=== PATIENT | male | born 1970 | race Caucasian/White ===

== ENCOUNTER 2019-09-06 16:27 | Emergency (ER) | payer OTHER, SELFPAY ==
[2019-09-06 16:35] VITALS: BP 158/69; PULSE 68; RESP 16; TEMP 37.4; O2SAT 98
--- NOTE | 2019-09-06 16:49 | ED.EAR ---
HPI - Ear Problem General Chief complaint: Ear Stated complaint: ear pain Source: patient Mode of arrival: ambulatory Limitations: no limitations History of Present Illness HPI Narrative: The patient, multiple oral meds, presents with ear discomfort. Patient states he has a swimming pool and noted some right ear discomfort associated with edema and discharge. No fever, facial changes, vertigo , dizzziness, URI-sinusitis; symptoms are mild, worse with palpation, unimproved with unknown previous topical ear antibiotic drops. Patient advised to follow-up with ENT, use provided ear jagjit, return if worsens per handout; He has a prior history of hypertension, dyslipidemia, AODM on oral medications Related Data Home Medications Medication Instructions Recorded Confirmed amlodipine 5 mg tablet 5 mg PO DAILY 03/25/19 09/06/19 aspirin 81 mg tablet,delayed 81 mg PO DAILY 03/25/19 09/06/19 release sildenafil 100 mg tablet 100 mg PO DAILY PRN 03/25/19 09/06/19 omega-3 fatty acids 1,000 mg 2,000 mg PO DAILY cap 03/26/19 09/06/19 capsule Allergies Allergy/AdvReac Type Severity Reaction Status Date / Time Sulfa (Sulfonamide Allergy Intermediate Other Verified 07/30/19 16:33 Antibiotics) Review of Systems Review of Systems: Narrative: General/Constitutional: No weight loss,fever Eyes: N0: Redness,discharge Ears/Nose/Throat: No: Epistaxis,ear discharge Respiratory: Denies: Hemoptysis Gastrointestinal: No Vomiting, Bleeding-rectal Skin: No Lumps, eruption Neurologic: No Focal Weakness,Sz Hematologic: Denies: Petechiae/Purpura Psychiatric: No: Suicida ideationl All Other Systems: Reviewed and Negative PMFSH Social History Social History Smoking status: Never smoker Alcohol intake: never Gender identity (if verbalized by the patient): Male Comments At time of signature, agree with nursing past medical, surgical, social and family history. There is no relevant family history pertinent to the presenting complaint Exam Narrative: Exam Narrative: General Appearance: Well appearing, Well nourished, No distress EYE: PERRLA , EOMI , Ears: Right EAC with mucopus and swelling, TMC not seen; Left external ear normal, Auditory canal normal Nose: Normal nose, Nares clear Mouth/Throat: Normal appearing, Normal lips Neck: Supple, No adenopathy Respiratory: Airway patent, No respiratory distress Skin: Warm, Dry Neurological: A&O x3, CN II-X intact Psychiatric: Normal mood, Normal affect Course Vital Signs Vital signs: Vital Signs Temperature 99.4 F 09/06/19 16:35 Pulse Rate 68 09/06/19 16:35 Respiratory Rate 16 09/06/19 16:35 Blood Pressure 158/69 H 09/06/19 16:35 Pulse Oximetry 98 09/06/19 16:35 Temperature 99.4 F 09/06/19 16:35 Pulse Rate 68 09/06/19 16:35 Respiratory Rate 16 09/06/19 16:35 Blood Pressure 158/69 H 09/06/19 16:35 Pulse Oximetry 98 09/06/19 16:35 Medical Decision Making Vital Signs Vital Signs: Vital Signs Temperature 99.4 F 09/06/19 16:35 Pulse Rate 68 09/06/19 16:35 Respiratory Rate 16 09/06/19 16:35 Blood Pressure 158/69 H 09/06/19 16:35 Pulse Oximetry 98 09/06/19 16:35 Temperature 99.4 F 09/06/19 16:35 Pulse Rate 68 09/06/19 16:35 Respiratory Rate 16 09/06/19 16:35 Blood Pressure 158/69 H 09/06/19 16:35 Pulse Oximetry 98 09/06/19 16:35 Discharge Plan Discharge Clinical Impression: Acute otitis externa of right ear Patient Disposition: Home, Self-Care Condition: Stable Instructions: Antibiotic Form, Otitis Externa (ED) Additional Instructions: See ENT in follow-up example Dr. Ulisses Hurt Prescriptions: New ciprofloxacin HCl 750 mg tablet 750 mg PO Q12H Qty: 10 RF: 0 Ciprodex 0.3-0.1 % drops,suspension 4 drp EACH EAR Q12H 7 Days Qty: 1 RF: 0 tramadol 50 mg tablet 50 mg PO Q6H PRN (Reason: pain) Qty:
== END 2019-09-06 16:59 | disposition home or self-care (01) ==
PROVIDERS: Emergency Provider Emergency Medicine; PCP Family Medicine
DX: H60.501 Unspecified acute noninfective otitis externa, right ear (principal); Z79.82 Long term (current) use of aspirin; E78.00 Pure hypercholesterolemia, unspecified; I10 Essential (primary) hypertension; E11.9 Type 2 diabetes mellitus without complications
CPT/HCPCS: 99213; G0463

== ENCOUNTER 2021-05-26 11:10 | Emergency (ER) | payer OTHER, SELFPAY ==
--- NOTE | ~2021-05-26 | XR_ITS ---
EXAMINATION: XR wrist LT min 3V DATE: 05/26/2021 11:33 INDICATION: Left wrist pain and swelling post fall TECHNIQUE: Posteroanterior, ulnar deviation, oblique, and lateral views of the left wrist were obtain ed. COMPARISON: none FINDINGS: Distal left radial metaphyseal fracture with which is dorsally impacted with buckling along the dorsa l sided cortex and mild posterior angulation resulting in 7 degrees dorsal tilt of the distal articul ar surface. No definitive extension of the fracture to involve the articular cortex. No other acute f ractures identified. Small round corticated ossicle near the tip of the ulnar styloid process likely sequela of old trauma either heterotopic ossicles related to soft tissue injury or a tiny chronic non united avulsion fracture fragment. Joint spaces appear relatively preserved at the left wrist and vis ualized hand. IMPRESSION: 1. Dorsal impaction resulting in mild dorsal angulation of a nondisplaced likely extra articular dist al left radial metaphyseal fracture. Reviewed, dictated and finalized at location A. IMPRESSION: 1. Dorsal impaction resulting in mild dorsal angulation of a nondisplaced likel y extra articular distal left radial metaphyseal fracture.
[2021-05-26 11:22] VITALS: BP 145/80; PULSE 93; RESP 18; TEMP 36.1; O2SAT 99
--- NOTE | 2021-05-26 11:39 | ED.UPPEXIN ---
HPI - Extremity Injury (Upper) General Chief Complaint: Extremity Injury, Upper Stated Complaint: lt wrist injury Time Seen by Provider: 05/26/21 11:25 Source: patient Mode of arrival: ambulatory Limitations: no limitations History of Present Illness HPI narrative: Mr. Valverde is a 50-year-old male patient presenting to the clinic today with complaints of left wrist pain after falling in the garage this morning around 7:30 AM. He has an obvious deformity to the left radial wrist. Is very limited motion wrist. States he tripped over a golf bag and out reach his arm to catch his fall. He denies hitting his head or any loss of consciousness. Related Data Home Medications Medication Instructions Recorded Confirmed lisinopril 10 mg tablet 10 mg PO DAILY 03/08/20 05/26/21 spironolactone 50 mg tablet 100 mg PO DAILY tablet 03/08/20 05/26/21 empagliflozin [Jardiance] 25 mg PO DAILY 05/26/21 05/26/21 Allergies Allergy/AdvReac Type Severity Reaction Status Date / Time Sulfa (Sulfonamide Allergy Intermediate Other Verified 05/26/21 11:30 Antibiotics) Review of Systems Review of Systems: Pertinent positives per HPI. Patient denies any fever, chills, rash, headache, visual changes, dizziness, cough, runny nose, sore throat, shortness of breath, chest pain, palpitations, nausea, vomiting, diarrhea, constipation, abdominal pain, or any urinary issues. 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 Dyslipidemia Essential hypertension Metabolic syndrome Mixed hyperlipidemia Other abnormal glucose Other specified diabetes mellitus with diabetic neuropathy, unspecified Snoring Type 2 diabetes mellitus Family History Family History Mother Hypertension, Onset Age: 77 Father Hypertension, Onset Age: 78 Carcinoma of colon Family history of congestive heart failure, Onset Age: 78 Social History Social History Alcohol intake: never Gender identity (if verbalized by the patient): Male Comments At the time of my signature, I reviewed and agree with the nursing past medical, surgical, social, and family history. There is no relevant family history pertinent to the patient complaint. Exam Narrative: General: Well-developed, well nourished, in no apparent distress Head: Normocephalic, atraumatic Cardio: Regular rate and rhythm, s1 and s2 normal, no murmur appreciated. Resp: Clear to auscultation bilaterally, no rhonchi, rales, wheezing or rubs. Musculoskeletal: Obvious left distal radial head deformity with swelling, tender to palpation over the dorsal distal radius, limited flexion and extension of the wrist due to pain, limited ulnar and radial deviation due to pain , is able to move fingers with mild pain to the wrist, peripheral pulse strong, normal gait and station Course Course Emergency Course: Portions of this record may have been created with voice recognition software. Level of Care: Express Care Visit Vital Signs Vital signs: Vital Signs Temperature 36.1 C L 05/26/21 11:22 Pulse Rate 93 05/26/21 11:22 Respiratory Rate 18 05/26/21 11:22 Blood Pressure 145/80 H 05/26/21 11:22 Pulse Oximetry 99 05/26/21 11:22 Temperature 36.1 C L 05/26/21 11:22 Pulse Rate 93 05/26/21 11:22 Respiratory Rate 18 05/26/21 11:22 Blood Pressure 145/80 H 05/26/21 11:22 Pulse Oximetry 99 05/26/21 11:22 Vital signs reviewed MDM - Extremity Injury (Upper) MDM Narrative Medical decision making narrative: Upon assessment patient is resting comfortably on the exam table. He has an obvious deformity to the left radial dorsal wrist. X-ray was completed and he has a distal impacted left radial fracture. Radiologist confirms that this is n
== END 2021-05-26 12:21 | disposition home or self-care (01) ==
PROVIDERS: Emergency Provider Nurse Practitioner Family; PCP Physician Assistant
DX: S52.502A Unspecified fracture of the lower end of left radius, initial encounter for closed fracture (principal); W19.XXXA Unspecified fall, initial encounter; E78.5 Hyperlipidemia, unspecified; I10 Essential (primary) hypertension; E78.2 Mixed hyperlipidemia; E11.9 Type 2 diabetes mellitus without complications
CPT/HCPCS: 29125; 73110; 99214; A4565; G0463

== ENCOUNTER 2022-03-17 09:32 | Emergency (ER) | payer OTHER, SELFPAY ==
--- NOTE | 2022-03-17 09:39 | ED.EYEPROB ---
HPI - Eye Problem General Chief complaint: Eye Problems Stated complaint: Lt Eye Irritation Time Seen by Provider: 03/17/22 09:45 Source: patient Mode of arrival: ambulatory Limitations: no limitations History of Present Illness HPI Narrative: Mr. Valverde is a 51-year-old male patient presenting to the clinic today with complaints of left eye discomfort x1 day. He reports no known injury. He does wear contacts and has taken his contact out. States that he has clear sticky drainage coming from the eye. Does have some discomfort and light sensitivity as well Related Data Home Medications Medication Instructions Recorded Confirmed spironolactone 50 mg tablet 100 mg PO DAILY 03/08/20 03/17/22 lisinopril 10 mg tablet 40 mg PO DAILY 07/19/21 03/17/22 aspirin 81 mg tablet 81 mg PO DAILY 09/14/21 03/17/22 Allergies Allergy/AdvReac Type Severity Reaction Status Date / Time Sulfa (Sulfonamide Allergy Intermediate Other Verified 03/17/22 09:49 Antibiotics) Review of Systems Review of Systems: Pertinent positives per HPI. Patient denies any fever, chills, rash, headache, dizziness, cough, runny nose, sore throat, shortness of breath, chest pain, palpitations, nausea, vomiting, diarrhea, constipation, abdominal pain, or any urinary issues. 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 Dyslipidemia Essential hypertension Metabolic syndrome Mixed hyperlipidemia Other abnormal glucose Other specified diabetes mellitus with diabetic neuropathy, unspecified Overweight Snoring Type 2 diabetes mellitus Family History Family History Mother Hypertension, Onset Age: 77 Father Hypertension, Onset Age: 78 Carcinoma of colon Family history of congestive heart failure, Onset Age: 78 Other Depression Social History Social History Smoking status: Never smoker Alcohol intake: never Substance use: never Living arrangements: with family Gender identity (if verbalized by the patient): Male Comments At the time of my signature, I reviewed and agree with the nursing past medical, surgical, social, and family history. There is no relevant family history pertinent to the patient complaint. Exam Narrative: General: Well-developed, well nourished, in no apparent distress Head: Normocephalic, atraumatic Eyes: Pupils equally round and reactive to light bilaterally, EOM intact, right sclera and conjunctive clear, left sclera and conjunctiva injected with watery discharge, lids normal Ears: TMs intact and clear, ear canals clear, no drainage, grossly hearing normal. Nose: Nares patent, no discharge, no inflammation, no sinus tenderness. Mouth: Oropharynx without lesions or masses, good dentition, MMM. Neck: Supple, trachea midline, no enlargement of anterior or posterior cervical nodes, no thyroid masses or goiter palpable. Cardio: Regular rate and rhythm, s1 and s2 normal, no murmur appreciated. Resp: Clear to auscultation bilaterally anteriorly and posteriorly, no rhonchi, rales, wheezing or rubs Course Course Emergency Course: Portions of this record may have been created with voice recognition software. Level of Care: Express Care Visit Vital Signs Vital signs: Vital Signs Temperature 36.6 C 03/17/22 09:42 Pulse Rate 106 H 03/17/22 09:42 Respiratory Rate 18 03/17/22 09:42 Blood Pressure 136/68 03/17/22 09:42 Pulse Oximetry 97 03/17/22 09:42 Oxygen Delivery Room Air 03/17/22 09:42 Temperature 36.6 C 03/17/22 09:42 Pulse Rate 106 H 03/17/22 09:42 Respiratory Rate 18 03/17/22 09:42 Blood Pressure 136/68 03/17/22 09:42 Pulse Oximetry 97 03/17/22 09:42 Ox
[2022-03-17 09:42] VITALS: BP 136/68; PULSE 106; RESP 18; TEMP 36.6; O2SAT 97
== END 2022-03-17 10:14 | disposition home or self-care (01) ==
PROVIDERS: Emergency Provider Nurse Practitioner Family; PCP Physician Assistant
DX: H10.9 Unspecified conjunctivitis (principal); E78.5 Hyperlipidemia, unspecified; I10 Essential (primary) hypertension; E78.2 Mixed hyperlipidemia; E11.40 Type 2 diabetes mellitus with diabetic neuropathy, unspecified; Z79.82 Long term (current) use of aspirin
CPT/HCPCS: 99213; A9270; G0463

== ENCOUNTER 2024-06-30 13:01 | Outpatient (CLI) | payer OTHER, SELFPAY ==
--- OUTSIDE RECORDS SUMMARY | 2024-06-30 13:14 | XMS_ITS | Clinical Summary ---
Author Organization [facility] Address [address] [place] [address] Care Team Providers Care Utilization Manager Name Role Phone Oswaldo Naranjo MD Primary Care Provider [phone] Allergies No known active allergies Medications gemfibroziL (LOPID) 600 mg tablet Take 1 tablet (600 mg total) by mouth 2 (two) times a day Active omega-3 fatty acids-fish oil 300-1,000 mg capsule Take by mouth Active Vascepa 1 gram capsule TAKE 2 CAPSULE BY MOUTH TWICE DAILY 03/04/2020 Active metFORMIN XR (GLUCOPHAGE XR) 500 mg 24 hr tablet Take 1 tablet (500 mg total) by mouth 2 (two) times a day 03/03/2020 Active sildenafiL (VIAGRA) 100 mg tablet 11/14/2020 Active amLODIPine (NORVASC) 5 mg tablet Take 2 tablets (10 mg total) by mouth daily 30 tablet 3 03/14/2021 Active spironolactone (ALDACTONE) 50 mg tabletIndication s:Hypertension, unspecified type Take 1 tablet (50 mg total) by mouth 2 (two) times a day 180 tablet 1 09/11/2022 Active Ozempic 1 mg/dose (4 mg/3 mL) pen injector injection INJECT 1 MG UNDER THE SKIN EVERY WEEK 11/12/2022 Active cholecalciferol (VITAMIN D-3) 50,000 unit capsule TAKE 1 CAPSULE BY MOUTH WEEKLY 10/30/2022 Active lisinopriL (PRINIVIL,ZESTRI L) 40 mg tabletIndication s:Hypertension, unspecified type Take 1 tablet (40 mg total) by mouth daily 90 tablet 3 03/07/2023 Active Active Problems Problem Noted Date Diagnosed Date Hyperlipidemia 04/22/2012 Abnormal glucose level 04/22/2012 Hypertension 04/22/2012 Corneal scar 06/04/2011 Myopia 06/04/2011 Social History Tobacco Use Types Packs/Day Years Used Date Smoking Tobacco: Never Tobacco Cessation:Counseling Given: Not Answered Personal Safety Answer Date Recorded Getting School Help Needed Not on file 02/08 Sex and Gender Information Value Date Recorded Sex Assigned at Not on file 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 Gender Identity Not on file Sexual Orientation Not on file Obstetrics History Last Filed Vital Signs Vital Sign Reading Time Taken Comments Blood Pressure 138/88 12/04/2022 10:00 AM CDT Pulse 106 12/04/2022 10:00 AM CDT Temperature 36.9 C (98.5 F) 12/04/2022 10:00 AM CDT Respiratory Rate - - Oxygen Saturation - - Inhaled Oxygen Concentration - - Weight 92.1 kg (203 lb) 12/04/2022 10:00 AM CDT Height 182.9 cm (6') 12/04/2022 10:00 AM CDT Body Mass Index 27.53 12/04/2022 10:00 AM CDT Plan of Treatment Health Maintenance Due Date Last Done Comments Colon Cancer Screening-Colonoscopy 1970 Depression Screening 1970 Hepatitis C Screening 1970 Prostate Cancer Screening-PSA 1970 DTaP/Tdap/Td Vaccine (1 - Tdap) 1981 Hepatitis B Screening 1988 Regular Well Visit/Exam 18-64 1988 Zoster Vaccine (1 of 2) 2020 Influenza Vaccine (#1) 2023 Pneumococcal vaccine <65 Aged Out No longer eligible based on patient's age to complete this topic Insurance [facility] Care Teams Utilization Manager Relationship Specialty Start Date End Date Oswaldo Naranjo MD [address] [place] [address] PCP - General Family Medicine 12/15/19
--- OUTSIDE RECORDS SUMMARY | 2024-06-30 13:14 | XMS_ITS | Encounter Summary ---
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 Gender Identity Not on file Sexual Orientation Not on file documented as of this encounter Plan of Treatment Not on file documented as of this encounter Procedures Procedure Name Priority Date/Time Associated Diagnosis Comments SCAN - LABS 12/30/2021 documented in this encounter Results * SCAN - LABS (12/30/2021) us Provider Scanning Edited Result - Final documented in this encounter Visit Diagnoses Not on filedocumented in this encounter Care Teams Banking Center Manager Relationship Specialty Start Date End Date Oswaldo Naranjo MD [address] [place] [address] PCP - General Family Medicine 12/15/19 documented as of this encounter
--- OUTSIDE RECORDS SUMMARY | 2024-06-30 13:14 | XMS_ITS | Encounter Summary ---
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 Gender Identity Not on file Sexual Orientation Not on file documented as of this encounter Plan of Treatment Not on file documented as of this encounter Procedures Procedure Name Priority Date/Time Associated Diagnosis Comments SCAN - RADIOLOGY/IMAGING 04/15/2017 documented in this encounter Results * SCAN - RADIOLOGY/IMAGING (04/15/2017) Anatomical Region Laterality Modality Other us Provider Scanning Final Result documented in this encounter Visit Diagnoses Not on filedocumented in this encounter Care Teams Packer Fuser Relationship Specialty Start Date End Date Oswaldo Naranjo MD [address] [place] [address] PCP - General Family Medicine 12/15/19 documented as of this encounter
--- OUTSIDE RECORDS SUMMARY | 2024-06-30 13:14 | XMS_ITS | Clinical Summary ---
Author Organization [facility] Address [address] [place] [address] Care Team Providers Care Sod Cutter Name Role Phone Unavailable Primary Care Provider Unavailabl e Source Comments [facility],non-owned Affiliates and Associated Physician Practices is amultiple site organization consisting of ambulatory clinics and hospital sitesin [place], [place], [place] and [place]. This disclosure is being madepursuant to the Care Everywhere program and may not contain all information available regarding this patient. Last updated 17.[facility] Medications * Be aware that medications may not be up to date on this document. Alwaysverify current medications with the patient. GEMFIBROZIL PO Activ e Empagliflozin (JARDIANCE PO) Activ e AMLODIPINE BESYLATE PO Active HYDRALAZINE HCL PO Active MINOXIDIL PO Active Brightwood-3 Fatty Acids (FISH OIL PO) Active SPIRONOLACTONE PO Active METFORMIN HCL PO Act kaela Nebivolol HCl (BYSTOLIC PO) Active ofloxacin (OCUFLOX) 0.3 % ophthalmic solution 1-2 drops in left eye Q 2-4 hours while awake X 2 days, then 1-2 drops four times/day X 5 days 1 bottles 10/05/2018 Active Social History Tobacco Use Types Packs/Day Years Used Date Smoking Tobacco: Never Smokeless Tobacco: Never Sex and Gender Information Value Date Recorded Sex Assigned at Not on file Legal Sex Male 1:07 PM CDT Gender Identity Not on file Sexual Orientation Not on file Last Filed Vital Signs Vital Sign Reading Time Taken Comments Blood Pressure 160/100 10/05/2018 12:30 PM CDT Pulse 69 10/05/2018 12:30 PM CDT Temperature 36.8 C (98.2 F) 10/05/2018 12:30 PM CDT Respiratory Rate 16 10/05/2018 12:30 PM CDT Oxygen Saturation 98% 10/05/2018 12:30 PM CDT Inhaled Oxygen Concentration - - Weight 98.4 kg (217 lb) 10/05/2018 12:30 PM CDT Height 182.9 cm (6') 10/05/2018 12:30 PM CDT Body Mass Index 29.43 10/05/2018 12:30 PM CDT Plan of Treatment Health Maintenance Due Date Last Done Comments COLOGUARD (AGES 45-75) - COL ON CA SCREENING 1970 COLON MONITORING 1970 COLONOSCOPY - COLON CA SCREENING 1970 CT COLONOGRAPHY - COLON CA SCREENING 1970 Colorectal Cancer Screening 1970 FIT - COLON CA SCREENING 1970 FLEX SIG - COLON CA SCREENING 1970 LIPID TESTING 1970 HIV SCREENING 1985 HEPATITIS C SCREENING 12/18/1988 DTAP/TDAP/TD VACCINES (1 - Tdap) 1989 HEPATITIS B VACCINE (1 of 3 - 19+ 3-dose series) 1989 SCREENING FOR DIABETES 10/05/2018 PNEUMOCOCCAL VACCINE 50+ (1 of 1 - PCV) 2020 ZOSTER VACCINE (1 of 2) 2020 COVID-19 VACCINE (1 - 2023-2 5 season) 2023 DEPRESSION SCREENING 02/26/2024 INFLUENZA VACCINE (Season Ended) 2024 HIB VACCINE Aged Out No longer eligi ble based on patient's age to complete this topic HPV VACCINE Aged Out No longer eligi ble based on patient's age to complete this topic MENINGOCOCCAL (Group B) VACC INE SHARED DECISION-MAKING Aged Out No longer eligibl e based on patient's age to complete this topic MENINGOCOCCAL GROUPS A/C/Y/W VACCINE Aged Out No longer eligible b ased on patient's age to complete this topic Insurance [employer]
--- OUTSIDE RECORDS SUMMARY | 2024-06-30 13:14 | XMS_ITS | Referral Summary ---
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 HMO/PPO Address: [facility] [address] [place] [address] Care Teams Extermination Supervisor Relationship Specialty Start Date End Date Oswaldo Naranjo MD [address] [place] [address] PCP - General Family Medicine 12/15/19
--- OUTSIDE RECORDS SUMMARY | 2024-06-30 13:14 | XMS_ITS | Encounter Summary ---
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 Gender Identity Not on file Sexual Orientation Not on file documented as of this encounter Plan of Treatment Not on file documented as of this encounter Procedures Procedure Name Priority Date/Time Associated Diagnosis Comments SCAN - LABS 12/05/2019 documented in this encounter Results * SCAN - LABS (12/05/2019) us Provider Scanning Final Result documented in this encounter Visit Diagnoses Not on filedocumented in this encounter Care Teams Breakdown Worker Relationship Specialty Start Date End Date Oswaldo Naranjo MD [address] [place] [address] PCP - General Family Medicine 12/15/19 documented as of this encounter
--- NOTE | 2024-06-30 14:40 | NEURO_ITS ---
Impression: # Known diabetic complains of increasing numbness of legs. ? # Neuropathy of axonal type. ? # Abnormal needle/EMG exam with neurogenic changes. Nerve Conduction Studies Anti Sensory Summary Table ?Stim Site NR Peak (ms) P-T Amp (?V) Site1 Site2 Delta-P (ms) Dist (cm) Mani (m/s) Left Sup Fibular Anti Sensory (Ant Lat Mall)??? NO RESPONSE 14 cm NR 14 cm Ant Lat Mall 16.0 Right Sup Fibular Anti Sensory (Ant Lat Mall)??? NO RESPONSE 14 cm NR 14 cm Ant Lat Mall 16.0 Left Sural Anti Sensory (Lat Mall)??? NO RESPONSE Calf NR Calf Lat Mall 16.0 Right Sural Anti Sensory (Lat Mall) Calf ? 4.1 14.8 Calf Lat Mall 4.1 16.0 39 Motor Summary Table ?Stim Site NR Onset (ms) O-P Amp (mV) Site1 Site2 Delta-0 (ms) Dist (cm) Mani (m/s) Left Peroneal Motor (Vastus Med) Ankle ? 3.9 1.0 Popit Ankle 11.3 43.0 38 Popit ? 15.2 0.9 Right Peroneal Motor (Vastus Med) Ankle ? 4.1 1.8 Popit Ankle 10.4 44.0 42 Popit ? 14.5 1.9 Left Tibial Motor (Abd Lozano Brev) Ankle ? 4.4 0.4 Knee Ankle 12.2 44.0 36 Knee ? 16.6 0.3 Right Tibial Motor (Abd Lozano Brev) Ankle ? 4.8 0.4 Knee Ankle 10.6 43.0 41 Knee ? 15.4 0.3 F Wave Studies ?NR F-Lat (ms) L-R F-Lat (ms) Left Peroneal (Mrkrs) (EDB)??? DISPERSED RESPONSE NR Right Peroneal (Mrkrs) (EDB) ? 57.22 Left Tibial (Mrkrs) (Abd Hallucis)??? NDIS NR Right Tibial (Mrkrs) (Abd Hallucis)??? DISPERSED RESPONSE NR EMG ?Side Muscle Nerve Root Ins Act Fibs Amp Dur Recrt Comment Right AntTibialis Dp Br Fibular L4-5 Nml Nml Nml >12ms +1 Right Gastroc Tibial S1-2 Nml Nml Nml >12ms +1 Right Fibularis Long Sup Br Fibular L5-S1 Nml Nml Nml >12ms +1 Right Flex Dig Long Tibial L5-S2 Nml Nml Nml >12ms +1 Right Ext Dig Brev Dp Br Fibular L5, S1 Nml Nml Nml >12ms +1 Right QuadratusFem QuadFemoris L4-5, S1 Nml Nml Nml Nml Nml Left AntTibialis Dp Br Fibular L4-5 Nml Nml Nml >12ms +1 Left Gastroc Tibial S1-2 Nml Nml Nml >12ms +1 Left Fibularis Long Sup Br Fibular L5-S1 Nml Nml Nml >12ms +1 Left Flex Dig Long Tibial L5-S2 Nml Nml Nml >12ms +1 Left Ext Dig Brev Dp Br Fibular L5, S1 Nml Nml Nml >12ms +1 Left QuadratusFem QuadFemoris L4-5, S1 Nml Nml Nml Nml Nml MTDD
== END 2024-06-30 13:02 | disposition home or self-care (01) ==
LOC: ANHNEURO 13:02
PROVIDERS: PCP Family Medicine; Visit Provider Nurse Practitioner Family
DX: G62.9 Polyneuropathy, unspecified (principal); E11.9 Type 2 diabetes mellitus without complications; R20.0 Anesthesia of skin
CPT/HCPCS: 95886; 95910

== ENCOUNTER 2024-07-03 08:55 | Outpatient (CLI) | payer OTHER, SELFPAY ==
--- NOTE | ~2024-07-03 | US_ITS ---
EXAMINATION: US arterial ankle brachial ind DATE: 07/03/2024 09:28 INDICATION: Type 2 diabetes TECHNIQUE: Segmental pressures and plethysmographic and Doppler waveforms of the brachial and lower e xtremity arteries were obtained. COMPARISON: None. FINDINGS: Right and left brachial artery pressures of 119 mm Hg and 119 mm Hg, respectively, are concordant (no rmal difference <= 30 mmHg). The right ankle-brachial index (NOREEN) is 1.25 (normal >= 0.9-1.0). The right great toe-brachial index (TBI) is 0.74 (normal >= 0.65). Arterial Doppler waveforms are triphasic at the right posterior tibia l artery and biphasic at the right dorsalis pedis artery, both with brisk systolic upstrokes. The left NOREEN is 1.26. The left TBI is 0.82. Arterial Doppler waveforms are biphasic with brisk systol ic upstrokes at both left posterior tibial and dorsalis pedis arteries. IMPRESSION: 1. No significant arterial occlusive disease with normal bilateral ABIs and TBIs. Reviewed, dictated and finalized at location B. IMPRESSION: 1. No significant arterial occlusive disease with normal bilateral ABIs and TBI s.
--- OUTSIDE RECORDS SUMMARY | 2024-07-03 08:58 | XMS_ITS | Clinical Summary ---
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
--- OUTSIDE RECORDS SUMMARY | 2024-07-03 08:58 | XMS_ITS | Clinical Summary ---
Author Organization [facility] Address [address] [place] [address] Care Team Providers Care Sewer Pipe Layer Name Role Phone Unavailable Primary Care Provider Unavailabl e Source Comments [facility],non-owned Affiliates and Associated Physician Practices is amultiple site organization consisting of ambulatory clinics and hospital sitesin [place], [place], [place] and [place]. This disclosure is being madepursuant to the Care Everywhere program and may not contain all information available regarding this patient. Last updated 17.[facility] Medications * Be aware that medications may not be up to date on this document. Alwaysverify current medications with the patient. GEMFIBROZIL PO Activ e Empagliflozin (JARDIANCE PO) Activ e AMLODIPINE BESYLATE PO Active HYDRALAZINE HCL PO Active MINOXIDIL PO Active [place]-3 Fatty Acids (FISH OIL PO) Active SPIRONOLACTONE [...]
--- OUTSIDE RECORDS SUMMARY | 2024-07-03 08:58 | XMS_ITS | Encounter Summary ---
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
--- OUTSIDE RECORDS SUMMARY | 2024-07-03 08:58 | XMS_ITS | Encounter Summary ---
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
--- OUTSIDE RECORDS SUMMARY | 2024-07-03 08:58 | XMS_ITS | Encounter Summary ---
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
--- OUTSIDE RECORDS SUMMARY | 2024-07-03 08:58 | XMS_ITS | Referral Summary ---
Author Organization 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
== END 2024-07-03 08:56 | disposition home or self-care (01) ==
PROVIDERS: PCP Family Medicine; Visit Provider Nurse Practitioner Family
DX: G57.92 Unspecified mononeuropathy of left lower limb (principal); E11.9 Type 2 diabetes mellitus without complications
CPT/HCPCS: 93922